=== PATIENT | female | born 1985 | race Caucasian/White ===

== ENCOUNTER 2025-05-04 13:30 | Emergency (ER) | payer OTHER ==
[2025-05-04 13:39] VITALS: RESP 20
--- NOTE | 2025-05-04 14:07 | ED ---
ENT HPI - General Chief complaint: Dental/Oral Stated complaint: Dental pain Time Seen by Provider: 05/04/25 13:47 Source: patient, RN notes reviewed Mode of arrival: ambulatory Limitations: no limitations - History of Present Illness Initial comments: This is a 39-year-old female presenting for dental pain (05/17) since Sunday. Patient endorses pain in her left upper molar with associated chills and some difficulty opening mouth despite use of Orajel and Bracey. Endorses history of injury to affected tooth with no dentist appointment made at this time. Denies swelling of throat, drooling, dysphagia, dyspnea. MD complaint: tooth pain Onset/Timin -: days(s) 1 - Cracked, damaged Severity scale (1-10): 8 Consistency: constant Context- Dental: history of dental caries, poor dental care Associated Symptoms: toothache - Related Data Previous Rx's Medication Instructions Recorded Amoxic-Pot Clav 875-125Mg 1 tab PO Q12HR #20 tab 05/04/25 [Augmentin 875-125] Ibuprofen [Motrin] 600 mg PO Q8HR PRN #30 tab 05/04/25 Allergies Allergy/AdvReac Type Severity Reaction Status Date / Time No Known Allergies Allergy Verified 05/04/25 13:39 Review of Systems ROS Statement: Those systems with pertinent positive or pertinent negative responses have been documented in the HPI. ROS Other: All systems not noted in ROS Statement are negative. Past Medical History Past Medical History: No Reported History History of Any Multi-Drug Resistant Organisms: None Reported Past Surgical History: Section, Tubal Ligation Past Psychological History: Anxiety, Bipolar Smoking Status: Current every day smoker Past Alcohol Use History: Rare Past Drug Use History: Marijuana General Exam Limitations: no limitations General appearance: alert, in no apparent distress Head exam: Present: atraumatic, normocephalic, normal inspection Eye exam: Present: normal appearance, PERRL, EOMI. Absent: scleral icterus, conjunctival injection, periorbital swelling ENT exam: Present: mucous membranes moist, other (Positive damage to the left upper first molar. Pain with tongue depressor palpation. Patient demonstrating some trismus attributed to pain. Negative gingival erythema, edema, abscess, drooling, stridor, elevation of floor. Positive mild/moderate facial edema with associated point tenderness.) Neck exam: Present: normal inspection. Absent: tenderness, meningismus, lymphadenopathy Respiratory exam: Present: normal lung sounds bilaterally. Absent: respiratory distress, wheezes, rales, rhonchi, stridor Cardiovascular Exam: Present: regular rate, normal rhythm, normal heart sounds. Absent: systolic murmur, diastolic murmur, rubs, gallop, clicks GI/Abdominal exam: Present: soft, normal bowel sounds. Absent: distended, tenderness, guarding, rebound, rigid Extremities exam: Present: normal inspection, full ROM, normal capillary refill. Absent: tenderness, pedal edema, joint swelling, calf tenderness Back exam: Present: normal inspection Neurological exam: Present: alert, oriented X3, CN II-XII intact Psychiatric exam: Present: normal affect, normal mood Skin exam: Present: warm, dry, intact, normal color. Absent: rash Course Vital Signs 05/04/25 05/04/25 13:36 14:21 Temperature 97.5 F L 98.0 F Pulse Rate 61 66 Respiratory 20 20 Rate Blood Pressure 121/76 130/74 O2 Sat by Pulse 95 99 Oximetry Medical Decision Making - Medical Decision Making Was pt. sent in by a medical professional or institution (Dr. PA, GRAINER MACHINE, urgent care, hospital, or skilled nursing...) When possible be specific @ -No Did you speak to anyone other than the patient for history (EMS, parent, family, police, friend...)? What history was obtained from this source @ -No Did you review nursing and triage notes (agree or disagree)? Why? @ -I reviewed and agree with nursing and triage notes Were old charts reviewed (outside hosp., previous admission, EMS record, old EKG, old radiological studies, urgent care reports/EKG's, skilled nursing records)? Report findings @ -No old charts were reviewed Differential Diagnosis (chest pain, altered mental status, abdominal pain women, abdominal pain men, vaginal bleeding, weakness, fever, dyspnea, syncope, headache, dizziness, GI bleed, back pain, seizure, CVA, palpatations, mental health, musculoskeletal)? @ -Dental ivon, dental abscess, periapical abscess, Clay's angina, gingivitis , ANUG, sinusitis, parotitis, this is not an exhaustive list EKG interpreted by me (3pts min.). @ -Not done X-rays interpreted by me (1pt min.). @ -None done CT interpreted by me (1pt min.). @ -None done U/S interpreted by me (1pt. min.). @ -None done What testing was considered but not performed or refused? (CT, X-rays, U/S, labs)? Why? @ -None What meds were considered but not given or refused? Why? @ -Patient declined supraperiosteal nerve block, stating she does not like needles Did you discuss the management of the patient with other professionals (professionals i.e. , PA, GRAINER MACHINE, lab, RT, psych nurse, social science research assistant, project development leader, teacher, medical corps officer, returned case inspector)? Give summary @ -No Was smoking cessation discussed for >3mins.? @ -No Was critical care preformed (if so, how long)? @ -No Were there social determinants of health that impacted care today? How? (Homelessness, low income, unemployed, alcoholism, drug addiction, transportation, low edu. Level, literacy, decrease access to med. care, fci, rehab)? @ -No Was there de-escalation of care discussed even if they declined (Discuss DNR or withdrawal of care, Hospice)? DNR status @ -No What co-morbidities impacted this encounter? (DM, HTN, Smoking, COPD, CAD, Cancer, CVA, ARF, Chemo, Hep., AIDS, mental health diagnosis, sleep apnea, morbid obesity)? @ -None Was patient admitted / discharged? Hospital course, mention meds given and route, prescriptions, significant lab abnormalities, going to OR and other pertinent info. @ -Patient provided p.o. Bracey, Motrin and initial dose of Augmentin for tooth infection. Augmentin and Motrin 600 sent to patient's pharmacy. Advised alternate Tylenol/Motrin every 4 hours for pain. Swish with warm salt water as needed. Follow-up with dentist/sledger for ongoing evaluation and management of dental issues. Discussed patient with Dr. Morse. Undiagnosed new problem with uncertain prognosis? @ -No Drug Therapy requiring intensive monitoring for toxicity (Heparin, Nitro, Insulin, Cardizem)? @ -No Were any procedures done? @ -No Diagnosis/symptom? @ -Dental abscess Acute, or Chronic, or Acute on Chronic? @ -Acute Uncomplicated (without systemic symptoms) or Complicated (systemic symptoms)? @ -Uncomplicated Side effects of treatment? @ -No Exacerbation, Progression, or Severe Exacerbation? @ -No Poses a threat to life or bodily function? How? (Chest pain, USA, MA, pneumonia, PE, COPD, DKA, ARF, appy, cholecystitis, CVA, Diverticulitis, Homicidal, Suicidal, threat to staff... and all critical care pts) @ -No Disposition Clinical Impression: Dental abscess Disposition: HOME SELF-CARE Condition: Fair Instructions (If sedation given, give patient instructions): Dental Abscess (ED), Toothache (ED) Additional Instructions: Alternate Tylenol/Motrin every 4 hours for pain. Swish with warm salt water and apply cold/hot pack as needed. Follow-up with sledger for definitive care/management of affected molar. Prescriptions: Amoxic-Pot Clav 875-125Mg [Augmentin 875-125] 1 tab PO Q12HR #20 tab Ibuprofen [Motrin] 600 mg PO Q8HR PRN #30 tab PRN Reason: Pain Is patient prescribed a controlled substance at d/c from ED?: No Referrals: None,Stated [Primary Care Provider] - 1-2 days Tamia Baker MD [REFERRING] - 1-2 days Nahum Velasquez DDS [STAFF PHYSICIAN] - 1-2 days Time of Disposition: 14:06
[2025-05-04] MEDS: IBUPROFEN 600 MG TAB PO STA (14:08)
[2025-05-04] MEDS: HYDROcodone/APAP 7.5-325MG 1 EACH TAB PO ONE (14:08)
[2025-05-04] MEDS: AMOXIC-POT CLAV 875-125MG 1 EACH TAB PO STA (14:09)
[2025-05-04 14:22] VITALS: BP 130/74; PULSE 66; TEMP 98
== END 2025-05-04 15:08 | disposition home or self-care (01) ==
LOC: EC 13:30
DX: K04.7 Periapical abscess without sinus (principal); F17.200 Nicotine dependence, unspecified, uncomplicated
CPT/HCPCS: 99283